=== PATIENT | female | born 1985 | race Caucasian/White ===

== ENCOUNTER → 2018-11-07 | Outpatient (CLI) | payer OTHER ==
--- NOTE | 2018-11-08 07:24 | REP ---
Clinical: Abnormal menstrual cycles . Technique: Transabdominal pelvic ultrasound followed by transvaginal examination for better evaluation of the endometrium and adnexa with color Doppler evaluation of the ovaries. Findings: Bladder is collapsed. Normal anteverted uterus measures 7.0 x 3.7 x 5.5 cm . The endometrial complex measures 8.7 mm thickness. No discrete uterine or endometrial abnormalities are appreciated. Right ovary is normal in appearance and vascularity measuring 2.2 x 2.2 x 1.3 cm; RI 0.56. Left ovary is normal in vascularity without torsion but appears enlarged measuring 4.7 x 3.8 x 4.0 cm with 3.6 cm complex likely physiologic cyst and 4.5 cm adjacent simple appearing exophytic cyst. Small amount of free fluid in the left adnexa. Left ovary RI 0.52. Impression: 1. Relatively normal anteverted uterus and right ovary. 2. Enlarged left ovary with 3.6 cm complex cyst and 4.5 cm simple exophytic cyst. Consider reevaluation in 4-6 weeks to evaluate for resolution. Electronically Signed by Mike Khan MD 11/08/2018 07:15 A
== END ==
LOC: M RAD 16:55
PROVIDERS: ATTEND Obstetrics & Gynecology
DX: N92.1 Excessive and frequent menstruation with irregular cycle (principal)

== ENCOUNTER → 2018-11-20 | Outpatient (CLI) | payer OTHER ==
[2018-11-20 18:59] LABS: FREE T4 0.87 NG/DL (0.76-1.46); THYROID STIMULATING HORMONE 1.53 uIU/ML (0.358-3.740)
[2018-11-21 10:53] LABS: PROLACTIN 5.1 NG/ML
== END ==
LOC: M WUC 08:28
PROVIDERS: ATTEND Obstetrics & Gynecology
DX: N92.1 Excessive and frequent menstruation with irregular cycle (principal)

== ENCOUNTER → 2018-12-08 | Outpatient (CLI) | payer OTHER | LOC: M WUC 10:20 | PROVIDERS: ATTEND Obstetrics & Gynecology | DX: N92.1 Excessive and frequent menstruation with irregular cycle (principal) ==

== ENCOUNTER → 2018-12-20 | Outpatient (CLI) | payer OTHER ==
--- NOTE | 2018-12-20 09:18 | REP ---
PELVIC SONOGRAPHY: HISTORY: Left-sided ovarian cyst. Comparison pelvic sonography November 07, 2018. SONOGRAPHIC FINDINGS: Transabdominal and transvaginal scanning are performed. Uterine dimensions are normal at 7.3 x 3.8 x 4.0 cm. Endometrial echo 0.5 cm thick. The uterus is somewhat retroverted. No focal uterine mass is seen. Visualized bladder hardy are smooth. A normal right ovary seen with dimensions of 4.9 x 2.2 x 4.5 cm. Its Doppler flow is normal, resistive index 0.50. The left ovary measures 3.2 x 2.6 x 2.8 cm. Its Doppler flow is normal, resistive index 0.53. There are two paraovarian cysts in the left adnexa. These measure 1.9 x 1.3 x 1.7 cm and 5.2 x 3.9 x 4.7 cm. IMPRESSION: Paraovarian cyst seen left ovary, largest of which measures 5.2 cm in greatest diameter. This is anechoic without mural nodule or septal thickening. There are a few internal echoes consistent with cellular material. Electronically Signed by Reinier Akbar MD 12/20/2018 09:32 A
== END ==
LOC: M RAD 08:30
PROVIDERS: ATTEND Obstetrics & Gynecology
DX: N83.202 Unspecified ovarian cyst, left side (principal)

== ENCOUNTER → 2019-02-24 | Outpatient (CLI) | payer OTHER ==
--- NOTE | 2019-02-25 08:30 | REP ---
NON-OB PELVIC ULTRASOUND: HISTORY: Irregular menstruation. COMPARISON: 12/20/2018 The uterus measures 4.1 cm in transverse x 3.2 cm in AP 6.4 cm in cephalocaudal dimensions. The endometrium measures 6.5 mm. A 4 mm focus of increased echogenicity is present in the uterus. This may represent a polyp. The right ovary measures 3.9 x 2.4 x 3.5 cm. A 1.6 cm dominant follicle is present. The left ovary measures 3.2 x 2.1 x 2.4 cm. An exophytic versus paraovarian septated cyst measuring 6.1 cm in width is present. There is no torsion. A small amount of free fluid is present in the cul-de-sac. IMPRESSION: 1. There is a possible small 4 mm polyp in the endometrial cavity. 2. There is a 1.6 cm dominant follicle in the right ovary. 3. There is an exophytic versus paraovarian septated cyst along the left ovary measuring 6.1 cm in maximum dimension. Electronically Signed by Michael Maciel MD 02/25/2019 09:04 A
== END ==
LOC: M RAD 16:07
PROVIDERS: ATTEND Obstetrics & Gynecology
DX: N84.0 Polyp of corpus uteri (principal); N83.01 Follicular cyst of right ovary; N83.8 Other noninflammatory disorders of ovary, fallopian tube and broad ligament

== ENCOUNTER 2019-05-03 05:48 | Day surgery (SDC) | payer OTHER ==
[~2019-05-03] VITALS: Ht 165.1 cm; Wt 60.8 kg
[~2019-05-03 05:48] MED LIST: SPIR-10 PO
[2019-05-03] MEDS ORDERED: LR 1,000 ML IV ONE (06:00)
[2019-05-03 06:21] LABS: HEMATOCRIT 37.4 % (36.0-47.0); HEMOGLOBIN 11.5 g/dl (12.0-15.5); MEAN CORPUSCULAR HEMOGLOBIN 26.4 pg (27.0-33.0); MEAN CORPUSCULAR HGB CONC 30.7 g/dl (32.0-36.5); MEAN CORPUSCULAR VOLUME 85.8 fl (80.0-96.0); PLATELET COUNT, AUTOMATED 221 10^3/uL (150-450); RED BLOOD COUNT 4.36 10^6/uL (4.00-5.40); WHITE BLOOD COUNT 6.7 10^3/uL (4.0-10.0)
[2019-05-03 06:57] LABS: URINE PREG TEST NEGATIVE (NEGATIVE)
[2019-05-03] MEDS ORDERED: BUPIVACAINE HCL 0.25% 30 ML VIAL As Ordered ONE (07:06)
[2019-05-03] MEDS ORDERED: ROCURONIUM BROMIDE 50 MG/5 ML VIAL As Ordered ONE (07:15)
[2019-05-03] MEDS ORDERED: LIDOCAINE 2% INJ 100 MG/5 ML SDV (FOR ANES.) As Ordered ONE (07:15)
[2019-05-03] MEDS ORDERED: PROPOFOL 200 MG/20 ML VIAL As Ordered ONE ×2 (07:15→07:17)
[2019-05-03] MEDS ORDERED: dexameTHASONE 4 MG/ML 1ML VIAL (J1100) As Ordered ONE (07:16)
[2019-05-03] MEDS ORDERED: METOCLOPRAMIDE INJ 10MG/2ML VIAL (J2765) As Ordered ONE (07:16)
[2019-05-03] MEDS ORDERED: ONDANSETRON 4MG/2ML VIAL (J2405) As Ordered ONE (07:16)
[2019-05-03] MEDS ORDERED: KETOROLAC 60 MG/2 ML VIAL (J1885) As Ordered ONE (07:17)
[2019-05-03] MEDS ORDERED: MIDAZOLAM INJ 2 MG/2 ML VIAL (J2250) As Ordered ONE (07:18)
[2019-05-03] MEDS ORDERED: fentaNYL 100 MCG/2 ML INJECTION (J3010) As Ordered ONE ×2 (07:18→08:55)
[2019-05-03] MEDS ORDERED: NEOSTIGMINE 10 MG/10 ML VIAL (J2710) As Ordered ONE (08:41)
[2019-05-03] MEDS ORDERED: GLYCOPYRROLATE INJ 0.2 MG/ML 2 ML VIAL As Ordered ONE (08:41)
[2019-05-03] MEDS ORDERED: ACETAMINOPHEN 1000MG 100ML IV BTL (OFIRMEV) (J0131 PER 10MG) As Ordered ONE (08:48)
[2019-05-03] MEDS ORDERED: METOCLOPRAMIDE INJ 10MG/2ML VIAL (J2765) IV PRN (09:30)
[2019-05-03] MEDS ORDERED: PROMETHAZINE INJ 25 MG/ML VIAL (J2550) IV PRN (09:30)
[2019-05-03] MEDS ORDERED: fentaNYL 100 MCG/2 ML INJECTION (J3010) IV PRN (09:30)
[2019-05-03] MEDS ORDERED: HYDROMORPHONE HCL 0.5 MG/ 0.5 ML SYRINGE (J1170 PER 1) IV PRN (09:30)
[2019-05-03] MEDS ORDERED: oxyCODONE 5MG TAB PO PRN (09:30)
[2019-05-03] MEDS ORDERED: LR 1,000 ML IV SCH (09:30)
[2019-05-03] MEDS ORDERED: PERCOCET 5MG/325MG TAB PO PRN (10:00)
[2019-05-03] MEDS ORDERED: KETOROLAC 30 MG/ML VIAL (J1885) IV SCH (10:00)
[2019-05-03 11:15] VITALS: BP 106/67
[2019-05-03] MEDS ORDERED: OXYC1TAB23 PO (12:36)
--- NOTE | 2019-05-03 13:36 | RO ---
DATE OF PROCEDURE: 05/03/2019 PREOPERATIVE DIAGNOSES: 1. Left ovarian cyst. 2. Endometrial polyp. POSTOPERATIVE DIAGNOSES: 1. Left ovarian cyst. 2. Thickened endometrium. PROCEDURES PERFORMED: 1. Laparoscopic diagnostic operative laparoscopy with left ovarian cystectomy. 2. Hysteroscopy with dilation and curettage. SURGEON: Leonor Jimenez MD BUILDING CUSTODIAL SUPERVISOR: Michael Alva MD ANESTHESIA: Generally tracheal anesthesia. ESTIMATED BLOOD LOSS: 10 mL. INTRAVENOUS FLUIDS: 1200 mL lactated Ringer's solution. SPECIMENS: 1. Two left ovarian cysts. 2. Endometrial curettings. PREOPERATIVE ANTIBIOTICS: None. INFECTION CLASSIFICATION: I. OPERATIVE FINDINGS: Patient with an approximately 6 cm left ovarian cyst and an approximately 2 cm left daughter ovarian cyst. Otherwise normal appearing uterus. Right adnexa was visualized and appeared to be normal. HYSTEROSCOPIC FINDINGS: Revealed a thickened endometrium. Bilateral ostia were visualized. DESCRIPTION OF OPERATION: After informed consent was obtained and written consent was reviewed, the patient was brought to the operating room where she was placed under general endotracheal anesthesia. She was then placed in lithotomy position and was prepped and draped in a normal sterile fashion. A time out in the operating room was then performed identifying the patient, the procedure to be performed, as well as, drug allergies. A bivalve speculum then placed revealing the cervix. The anterior lip of the cervix was grasped with a single-tooth tenaculum. Hulka tenaculum then advanced through cervical os for means to manipulate the uterus. The single-tooth tenaculum as well as the speculum was removed. A Vital catheter was placed and set to gravity. Gloves were changed. Attention was turned to the patient's abdomen. The umbilical region was infused with 0.25% Marcaine. Incision was made in this area. An 11 mm trocar and sleeve was advanced through this incision. The laparoscope was replaced revealing intra-abdominal placement. Pneumoperitoneum was then obtained with CO2 gas. Two additional port sites were placed to the left and right side of the patient's abdomen. These areas were infused with 0.25% Marcaine Incision was made in each one of these areas and 5 mm trocars and sleeves were advanced through each one of these incisions under direct visualization. Next, the abdomen was surveyed with the above-noted findings. Using Harmonic Power scalpel device, the left ovarian cyst wall was opened. This was further dissected out. The left ovarian cyst was then peeled away from the ovarian tissue. Intraoperative rupture was performed. The specimen was then brought out through the umbilical port site. The left 2 cm daughter cyst in a similar fashion was dissected off the ovarian wall using Power scalpel device. The left daughter cyst wall was opened. It was further dissected out and was removed and taken out through the umbilical port site. The abdomen was further irrigated and suctioned. Instruments were then removed from the patient's abdomen. The pneumoperitoneum was then released. Trocars were removed at all three port sites. Incisions were closed with #4-0 Monocryl and dressed with Dermabond. I proceeded with the hysteroscopy, dilation and curettage. Attention was then turned towards that procedure. A bivalve speculum was placed. Hulka tenaculum was then removed. A single tooth tenaculum was then replaced. The uterus then sounded to 8 cm. It was sequentially dilated using Hanks dilators. Hysteroscope was then advanced to the cervical os and the endometrial cavity was then surveyed showing a thickened endometrium. No discrete endometrial polyp was identified. Hysteroscope was then removed. Sharp curette was then advanced through cervical os to the level of the fundus and the uterus was curetted in a 360 degree fashion. This tissue was then collected and sent to pathology for further evaluation. The single-tooth tenaculum was removed. The tenaculum sites were noted to be hemostatic. Speculum was then removed. The Vital catheter was removed. The patient was then taken out of lithotomy position and was awakened from anesthesia and taken to recovery in stable condition. Dr. Alva, my surgical oncologist, played an essential role during the laparoscopic left ovarian cystectomy. He assisted with port placement, tissue retraction, identification, removal of the specimen, as well as, wound closure.
== END 2019-05-03 11:21 | disposition home or self-care (01) ==
LOC: M SDC 05:48
PROVIDERS: ATTEND Obstetrics & Gynecology
DX: N84.0 Polyp of corpus uteri (principal); N85.00 Endometrial hyperplasia, unspecified; N83.202 Unspecified ovarian cyst, left side; D64.9 Anemia, unspecified; F41.9 Anxiety disorder, unspecified; F32.9 Major depressive disorder, single episode, unspecified; Z79.899 Other long term (current) drug therapy
CPT/HCPCS: 36415; 58558; 58662; 84703; 85027; 86850; 86900; 86901; 88305; J0131; J1100; J1885; J2250; J2405; J2710; J2765; J3010

== ENCOUNTER → 2019-08-30 | Outpatient (CLI) | payer OTHER ==
[~2019-08-30] MED LIST changes: +OXYC1TAB23 PO
[2019-08-30 18:10] LABS: BASO % 0.3 % (0.0-1.0); EOS % 0.3 % (0.0-3.0); HEMATOCRIT 39.5 % (36.0-47.0); HEMOGLOBIN 12.8 g/dl (12.0-15.5); LYMPH # 1.4 10^3/uL (1.5-5.0); LYMPH % 9.4 % (24.0-44.0); MEAN CORPUSCULAR HEMOGLOBIN 26.6 pg (27.0-33.0); MEAN CORPUSCULAR HGB CONC 32.4 g/dl (32.0-36.5); MEAN CORPUSCULAR VOLUME 82.1 fl (80.0-96.0); MONO # 0.8 10^3/uL (0.0-0.8); MONO % 5.4 % (0.0-5.0); NEUTROPHILS # 12.2 10^3/uL (1.5-8.5); NEUTROPHILS % 83.8 % (36.0-66.0); PLATELET COUNT, AUTOMATED 289 10^3/uL (150-450); RED BLOOD COUNT 4.81 10^6/uL (4.00-5.40); WHITE BLOOD COUNT 14.6 10^3/uL (4.0-10.0)
[2019-08-30 21:39] LABS: CHLAMYDIA DNA AMPLIFICATION NEGATIVE (NEGATIVE); GC DNA AMPLIFICATION NEGATIVE (NEGATIVE)
[2019-09-01 11:35] LABS: HEPATITIS C VIRUS ABY INDEX 0.1 INDEX (<0.8); HIV 1&2 SCREEN CENTAUR NEGATIVE (NEGATIVE); RUBELLA IgG QUALITATIVE IMMUNE (IMMUNE)
== END ==
LOC: M PLALAB 13:58
PROVIDERS: ATTEND Obstetrics & Gynecology
DX: Z34.91 Encounter for supervision of normal pregnancy, unspecified, first trimester (principal); Z3A.00 Weeks of gestation of pregnancy not specified

== ENCOUNTER → 2019-11-10 | Outpatient (CLI) | payer OTHER ==
--- NOTE | 2019-11-10 10:39 | REP ---
OBSTETRIC SONOGRAPHY: HISTORY: Supervision of for anatomy. FINDINGS: Scanning through the gravid uterus demonstrates a viable single intrauterine gestation in a transverse, head to the maternal left lie. motion is observed and heart rate is recorded 152 beats per minute. An anterior grade 0 placenta is seen without evidence of previa or abruption. Amniotic fluid is subjectively normal. Closed cervical length measured transabdominally is 3.4 cm. No extrauterine abnormality is observed. No anomaly is seen. The following anatomic structures are less than optimally visualized due to position: Four-chamber heart with left and right ventricular outflow tract views, and spine. The following anatomic structures are identified and felt to be unremarkable: cranium, choroid plexus, cavum, cerebellum and posterior fossa, face and profile, diaphragm, left-sided stomach, three-vessel cord, kidneys and bladder, upper and lower extremities. Biometry Chart: BPD 4.9 cm = 20 weeks 6 days HC 17.9 cm = 20 weeks 2 days AC 14.8 cm = 20 weeks 1 day FL 3.3 cm = 20 weeks 2 days HL 3.2 cm = 20 weeks 5 days HC/AC ratio normal 1.21. Cephalic index normal 0.77. Estimated weight 340 grams, 0 pounds 11 ounces, 49th percentile for 20 weeks 1 day. IMPRESSION: Viable single intrauterine gestation at 20 weeks 1 day by today's composite sonographic criteria. HOSEA by today's sonography March 28, 2020. anatomic survey is less than complete as above.
== END ==
LOC: M WHC 07:59
PROVIDERS: ATTEND Advanced Practice Midwife
DX: Z34.02 Encounter for supervision of normal first pregnancy, second trimester (principal); Z3A.20 20 weeks gestation of pregnancy

== ENCOUNTER → 2019-12-06 | Outpatient (CLI) | payer OTHER ==
--- NOTE | 2019-12-06 18:05 | REP ---
Clinical: Anatomical evaluation. Comparison: 11/10/2019 . Findings: Examination demonstrates a single live intrauterine in transverse (head to maternal left) presentation. motion is identified by technologist. Placenta is noted anterior and grade zero without evidence for placenta previa or abruption. Amniotic fluid volume is normal. Cervix measures 3.8 cm in length and appears closed. No evidence for nuchal cord. Gestational age by LMP 23 weeks 6 days with HOSEA 03/28/2020 . Gestational age by current measurements 23 weeks 4 days with HOSEA 03/30/2020 . FHR equals 127 beats per minute. Estimated weight 643 grams ( 46th percentile). Anatomical assessment demonstrates normal four-chamber heart/ventricular outflow tracts. Impression: 1. Single live intrauterine in transverse lie demonstrating appropriate interval growth. 2. Continued limited evaluation of the spine. Images of the heart/ventricular outflow tracts are normal. Electronically Signed by Mike Khan MD 12/06/2019 05:57 P
== END ==
LOC: M WHC 09:21
PROVIDERS: ATTEND Nurse Practitioner Women's Health
DX: Z34.02 Encounter for supervision of normal first pregnancy, second trimester (principal); Z3A.23 23 weeks gestation of pregnancy

== ENCOUNTER → 2019-12-20 | Outpatient (REF) | payer OTHER ==
[2019-12-20 13:21] LABS: HEMATOCRIT 33.4 % (36.0-47.0); HEMOGLOBIN 10.4 g/dl (12.0-15.5); MEAN CORPUSCULAR HEMOGLOBIN 26.5 pg (27.0-33.0); MEAN CORPUSCULAR HGB CONC 31.1 g/dl (32.0-36.5); MEAN CORPUSCULAR VOLUME 85.2 fl (80.0-96.0); PLATELET COUNT, AUTOMATED 189 10^3/uL (150-450); RED BLOOD COUNT 3.92 10^6/uL (4.00-5.40)
== END ==
LOC: M PLALAB 08:50
PROVIDERS: ATTEND Nurse Practitioner Women's Health
DX: Z34.02 Encounter for supervision of normal first pregnancy, second trimester (principal)

== ENCOUNTER → 2020-01-02 | Outpatient (CLI) | payer OTHER ==
--- NOTE | 2020-01-03 16:47 | REP ---
Clinical: Anatomical evaluation. Comparison: 12/06/2019 . Findings: Examination demonstrates a single live intrauterine in cephalic presentation. motion is identified by technologist. Placenta is noted anterior and grade I without evidence for placenta previa or abruption. Amniotic fluid volume is normal. Cervix measures 3.5 cm in length and appears closed. No evidence for nuchal cord. Gestational age by LMP 27 weeks 5 days with HOSEA 03/28/2020 . Gestational age by current measurements 27 weeks 6 days with HOSEA 03/27/2020 . FHR equals 147 beats per minute. Estimated weight 1156 grams ( 48th percentile). Anatomical assessment demonstrates normal structures including cranium, facial features, lungs, four-chamber heart/ventricular outflow tracts, diaphragm, stomach, cord insertion/three-vessel cord, kidneys/bladder, spine, and extremities. Impression: Single live intrauterine in cephalic presentation demonstrating appropriate oval growth. Anatomical assessment is complete and normal.
== END ==
LOC: M WHC 08:04
PROVIDERS: ATTEND Nurse Practitioner Women's Health
DX: Z34.02 Encounter for supervision of normal first pregnancy, second trimester (principal); Z3A.25 25 weeks gestation of pregnancy

== ENCOUNTER → 2020-03-01 | Outpatient (REF) | payer OTHER | LOC: M SFHCWAGY 11:02 | PROVIDERS: ATTEND Specialist | DX: Z34.83 Encounter for supervision of other normal pregnancy, third trimester (principal) ==

== ENCOUNTER 2020-03-28 22:34 | Inpatient (IN) | payer OTHER ==
[~2020-03-28] VITALS: Ht 165.1 cm; Wt 84.7 kg
[2020-03-28] MEDS ORDERED: PRENTAB9 PO (22:59)
[2020-03-28] MEDS ORDERED: ZOFR4TAB16 PO (23:00)
[2020-03-28 23:52] LABS: HEMATOCRIT 33.4 % (36.0-47.0); HEMOGLOBIN 10.5 g/dl (12.0-15.5); MEAN CORPUSCULAR HEMOGLOBIN 24.8 pg (27.0-33.0); MEAN CORPUSCULAR HGB CONC 31.4 g/dl (32.0-36.5); PLATELET COUNT, AUTOMATED 199 10^3/uL (150-450); RED BLOOD COUNT 4.23 10^6/uL (4.00-5.40); WHITE BLOOD COUNT 15.6 10^3/uL (4.0-10.0)
[2020-03-29] VITALS (67 sets, daily range): BP systolic 97–174; BP diastolic 50–89
[2020-03-29] MEDS: ONDANSETRON 4MG/2ML VIAL IV PRN ×2 (00:31→09:39)
--- NOTE | 2020-03-29 07:48 | IPNPDOC ---
Text Note Date of Service The patient was seen on 03/29/20. NOTE Progress Eating breakfast. Reports being uncomfortable and with bloody show FH 135, Cat I UC 2-3 minutes SVE 2/80/-2, posterior, moderate, light show No cervical change Will place Cooks catheter and start pitocin after breakfast. Pt plans epidural VS,Fishbone, I+O VS, Fishbone, I+O Laboratory Tests 03/28/20 23:19 Vital Signs Date Time Temp Pulse Resp B/P (MAP) Pulse Ox O2 Delivery O2 Flow Rate FiO2 03/29/20 06:14 89 17 130/74 (92) 03/29/20 06:13 98.2 Maryjane Black Mar 29, 2020 07:48
[2020-03-29] MEDS ORDERED: OXYTOCIN DRIP 30 UNITS in IV 1 EA IV SCH ×2 (08:00→22:46)
[2020-03-29] MEDS ORDERED: PROMETHAZINE INJ 25 MG/ML VIAL (J2550) IV ONE (08:45)
[2020-03-29] MEDS ORDERED: BUTORPHANOL 2 MG/ML INJ (J0595) IV ONE (08:45)
--- NOTE | 2020-03-29 09:06 | IPNPDOC ---
Text Note Date of Service The patient was seen on 03/29/20. NOTE Progress Cooks catheter placed, inflated with 60/40ml NS SROM during placement - thin meconium stained fluid Cat I tracing Will start pitocin VS,Fishbone, I+O VS, Fishbone, I+O Laboratory Tests 03/28/20 23:19 Vital Signs Date Time Temp Pulse Resp B/P (MAP) Pulse Ox O2 Delivery O2 Flow Rate FiO2 03/29/20 07:38 98.5 88 18 116/68 (84) 97 Maryjane Black Mar 29, 2020 09:06
[2020-03-29] MEDS: LR 1,000 ML IV SCH ×3 (09:22→18:16)
[2020-03-29] MEDS ORDERED: FENTANYL 2MCG/ML ROPIVACAINE 0.2% IN 0.9% NACL 100ML IVBAG As Ordered ONE ×2 (10:28→18:23)
[2020-03-29] MEDS ORDERED: EPIDURAL COMMENT XX SCH (11:45)
[2020-03-29] MEDS ORDERED: ONDANSETRON 4MG/2ML VIAL IV PRN (11:45)
[2020-03-29] MEDS ORDERED: LACTATED RINGER'S 1000 ML IV PRN (11:45)
[2020-03-29] MEDS ORDERED: EPIDURAL/PCA KEYS XX PRN (11:45)
[2020-03-29] MEDS ORDERED: REFRIGERATOR IV KEYS XX PRN (11:45)
[2020-03-29] MEDS ORDERED: NALOXONE INJ 0.4MG/1ML VIAL (J2310 PER 1MG) IV PRN (11:45)
[2020-03-29] MEDS ORDERED: diphenhydrAMINE 50MG/ML VIAL (J1200) IV PRN (11:45)
[2020-03-29] MEDS: FENTANYL/ROPIVACAINE/NACL BAG 100 ML EPIDURAL SCH ×2 (12:26→18:26)
--- NOTE | 2020-03-29 14:10 | IPNPDOC ---
Text Note Date of Service The patient was seen on 03/29/20. NOTE Progress Comfortable with epidural Cat I tracing UC 2-3 minutes, moderate Thin meconium fluid draining PV SVE bulb in vagina. -/-1 Continue induction. Anticipate NSVB VS,Fishbone, I+O VS, Fishbone, I+O Laboratory Tests 03/28/20 23:19 Vital Signs Date Time Temp Pulse Resp B/P (MAP) Pulse Ox O2 Delivery O2 Flow Rate FiO2 03/29/20 07:38 98.5 88 18 116/68 (84) 97 Maryjane Black CNM Mar 29, 2020 14:10
--- NOTE | 2020-03-29 15:18 | HPE ---
DATE OF ADMISSION: 03/28/2020 A 34-year-old (G) 1, para (P) 0 female at 40 and 0/7 weeks gestation by last menstrual period (LMP) consistent with early ultrasound, estimated date of confinement (EDC) 03/28/2020 who presents with contractions every 3-4 minutes for the last several hours. Contractions have increased in intensity. She has had a small amount of bloody show. She denies leaking fluid. PAST MEDICAL HISTORY: Anxiety and depression. PAST SURGICAL HISTORY: 1. Knee surgery. 2. Hysteroscopy. 3. Ankle surgery. 4. Ovarian cystectomy. ALLERGIES: No known drug allergies. SOCIAL HISTORY: The patient lives in [place]. Denies cigarettes, alcohol, or drug use. The patient is . FAMILY HISTORY: Noncontributory. PHYSICAL EXAMINATION: Blood pressure 132/88, pulse 84. Appears mildly uncomfortable. HEAD AND NECK: Normal. LUNGS: Clear. HEART: Regular. ABDOMEN: Nontender, gravid. heart tones are category 1. Contractions every 3-5 minutes. STERILE VAGINAL EXAMINATION: 2 cm, 80%, -2, posterior, soft, vertex. EXTREMITIES: Nontender. LABORATORY DATA: GBS negative. Blood type O+. ASSESSMENT: A 34-year-old (G) 1 at 40 and 0/7 weeks gestation who presents in early labor. PLAN: The patient is admitted on 03/28/2020.
[2020-03-29] MEDS ORDERED: fentaNYL 100 MCG/2 ML INJECTION (J3010) As Ordered ONE (16:58)
--- NOTE | 2020-03-29 17:19 | IPNPDOC ---
Text Note Date of Service The patient was seen on 03/29/20. NOTE Progress More comfortable with epidural bolus. FH Minimal/moderate variability, Cat I with episodes Cat II UC Q 2-3 minutes Pitocin @ 6mu SVE /-1, light show and thin meconium Continue to support and observe VS,Fishbone, I+O VS, Fishbone, I+O Laboratory Tests 03/28/20 23:19 Vital Signs Date Time Temp Pulse Resp B/P (MAP) Pulse Ox O2 Delivery O2 Flow Rate FiO2 03/29/20 13:07 76 18 97/50 (66) 03/29/20 11:36 98.2 03/29/20 07:38 97 Maryjane Black CNM Mar 29, 2020 17:19
[2020-03-29] MEDS: ePHEDrine SULFATE 25 MG/5 ML(5MG/ML) SYRINGE IV PRN ×3 (18:44→18:57)
[2020-03-29] MEDS ORDERED: ACETAMINOPHEN 500 MG TAB PO ONE (19:00)
--- NOTE | 2020-03-29 21:24 | IPNPDOC ---
Text Note Date of Service The patient was seen on 03/29/20. NOTE Progress Fully dilated 1915. Commenced pushing 1949. FH 160's-170's between Now becoming 170's-180's between . Presenting part +2, +[address] Jimenez requested to attend. VS,Terrybone, I+O VS, Terrybone, I+O Laboratory Tests 03/28/20 23:19 Vital Signs Date Time Temp Pulse Resp B/P (MAP) Pulse Ox O2 Delivery O2 Flow Rate FiO2 03/29/20 18:59 92 125/65 (85) 03/29/20 18:59 99.5 03/29/20 18:43 18 03/29/20 07:38 97 Maryjane Black CNM Mar 29, 2020 21:24
[2020-03-29 22:25] LABS: CORD GAS ABE V -4.7; CORD GAS O2 SAT V 53.6 %; CORD GAS PCO2 V 46.2 mmHg; CORD GAS PH V 7.295 UNITS; CORD GAS PO2 V 24.3 mmHg; CORD GAS SBC V 19.5 MEQ/L; CORD GAS TCO2 V 23.4 MEQ/L
[2020-03-29 22:28] LABS: CORD GAS ABE A -9.3; CORD GAS HCO3 A 18.5 MEQ/L; CORD GAS O2 SAT A 68.3 %; CORD GAS PH A 7.214 UNITS; CORD GAS SBC A 16.6 MEQ/L
--- NOTE | 2020-03-29 22:48 | DNPDOC ---
[facility] Delivery Note Delivery Note DATE OF DELIVERY: 03/29/2020 TIME OF : 2203 GENDER:, Female. APGARS:, 7 and 9. WEIGHT:, 3970 grams or 8 pounds 9 ounces. LACERATIONS:. Second-degree midline laceration ANESTHESIA: Epidural. ESTIMATED BLOOD LOSS: 300ml COUNTS: 5 laparotomy sponges accounted for prior to after delivery. 3 sharps removed delivery field. MODE OF DELIVERY: Low vacuum-assisted vaginal delivery INDICATION: Persistent category 2 rate tracing COMPLICATION: None DELIVERY NOTE: Was called to room to assess patient for persistent category 2 heart tracing with tachycardia and repetitive variable decelerations. She was pushing for approximately one and half hours when I pr esented to the labor room. Patient was assessed and was noted to be at +2 station. Vital catheter was removed. The position was confirmed to be occiput anterior (OA). Patient was thoroughly counseled in regards to operative vacuum delivery. Vacuum was placed and with 2 maternal pushing efforts, head was delivered without any pop offs of the vacuum. Vacuum was then removed. Nuchal cord was manually reduced followed by delivery of the shoulders and corpus. was handed to mom with a good cry. Cord was clamped times two and was cut by the father of baby under my direction. Placenta was then drained and delivered grossly intact. A premixed bag of 500 mL of normal saline with 30 units of Pitocin was then bolused along with uterine massage until the uterus was firm. On inspection,. There was a 2nd-degree midline laceration which was repaired with 3-0 Vicryl. On reinspection, cervix, vagina, perineum was grossly intact and hemostatic. Mom and baby in recovery on stable condition. The couples decided to remain in daughter , ALEJANDRO Latham MD. Mar 29, 2020 22:48
[2020-03-29] MEDS: IBUPROFEN 800 MG TAB PO PRN (22:56)
[2020-03-29] MEDS ORDERED: AMPICILLIN SOD/SULBACTAM SOD 3 GM in D5W MINI-BAG PLUS 100 ML IV ONE (23:00)
[2020-03-29] MEDS ORDERED: ANUSOL HC CREAM 30GM TOP PRN (23:00)
[2020-03-29] MEDS ORDERED: METHYLERGONOVINE MALEATE 0.2 MG TAB PO PRN (23:00)
[2020-03-29] MEDS ORDERED: ACETAMINOPHEN TAB 650MG DOSE (2X325MG) PO PRN (23:00)
[2020-03-29] MEDS ORDERED: IBUPROFEN 600MG TAB PO PRN (23:00)
[2020-03-29] MEDS ORDERED: DIBUCAINE 1% OINTMENT 30GM TOP PRN (23:00)
[2020-03-29] MEDS ORDERED: MOM 30ML SUSPENSION UDC PO PRN (23:00)
[2020-03-29] MEDS ORDERED: MEASLES,MUMPS,RUBELLA VACCINE INJ (MMR-II) (90707) SC SCH (23:00)
[2020-03-29] MEDS ORDERED: RHOGAM 300 MCG (1500 IU) INJ (J2790) IM SCH (23:00)
[2020-03-30 00:57] VITALS: BP 92/55
[2020-03-30] MEDS: ACETAMINOPHEN 500 MG TAB PO PRN ×2 (01:25→19:56)
[2020-03-30 06:00] VITALS: BP 115/62
[2020-03-30] MEDS: IBUPROFEN 800 MG TAB PO PRN ×2 (06:42→15:15)
[2020-03-30] MEDS: DOCUSATE SODIUM 100 MG CAP PO PRN ×2 (06:46→19:55)
[2020-03-30] MEDS: PRENATAL VITAMINS CHEWABLE TABLET PO SCH (08:07)
--- NOTE | 2020-03-30 08:16 | IPNPDOC ---
Text Note Date of Service The patient was seen on 03/30/20. NOTE PP #1 Feels well. Reports rectal pressure and discomfort. Voiding. VSS, afebrile,normotensive Fundus firm, NT, down 1 FB Lochia rubra light without odor Perineum well approximated. Mild edema left > right. Tissues are soft. PP #1 post vacuum assisted vaginal delivery Routine care. Continue ice to perineum. Consider discharge in am VS,Fishbone, I+O VS, Fishbone, I+O Vital Signs Date Time Temp Pulse Resp B/P (MAP) Pulse Ox O2 Delivery O2 Flow Rate FiO2 03/30/20 06:00 98.0 95 18 115/62 (79) 03/29/20 07:38 97 I&O- Last 24 Hours up to 6 AM 03/30/20 06:00 Intake Total 6846 ml Output Total 1025 ml Balance 5821 ml Maryjane Black CNM Mar 30, 2020 08:16
[2020-03-30 18:00] VITALS: BP 118/68
[2020-03-31] MEDS: IBUPROFEN 800 MG TAB PO PRN ×2 (01:35→14:21)
[2020-03-31 05:51] VITALS: BP 99/57
[2020-03-31] MEDS: ACETAMINOPHEN 500 MG TAB PO PRN ×2 (05:52→14:21)
[2020-03-31] MEDS: PRENATAL VITAMINS CHEWABLE TABLET PO SCH (07:22)
[2020-03-31] MEDS: DOCUSATE SODIUM 100 MG CAP PO PRN (14:54)
== END 2020-03-31 14:55 | disposition home or self-care (01) | DRG 807 ==
LOC: M LDO 22:34 → M LDI 23:14 → M OBS 03-30 00:57
PROVIDERS: ADMIT Specialist; ATTEND Specialist
PROC: 10D07Z6 Extraction of Products of Conception, Vacuum, Via Natural or Artificial Opening (ICD-10-PCS; principal; 2020-03-29)
PROC: 0KQM0ZZ Repair Perineum Muscle, Open Approach (ICD-10-PCS; 2020-03-29)
DX: O48.0 Post-term pregnancy (principal); Z37.0 Single live birth; Z3A.40 40 weeks gestation of pregnancy; O70.1 Second degree perineal laceration during delivery; O76 Abnormality in fetal heart rate and rhythm complicating labor and delivery; O69.81X0 Labor and delivery complicated by cord around neck, without compression, not applicable or unspecified

== ENCOUNTER → 2020-04-29 | Outpatient (REF) | payer OTHER ==
[~2020-04-29] MED LIST changes: +PRENTAB9 PO; +ZOFR4TAB16 PO
[2020-05-30 13:31] LABS: AMORPHOUS SEDIMENT MODERATE (NEGATIVE); APPEARANCE, URINE TURBID (CLEAR); BACTERIA, URINE AUTO NEGATIVE (NEGATIVE); BILIRUBIN, URINE AUTO NEGATIVE (NEGATIVE); BLOOD, URINE BLOOD 2+ (NEGATIVE); COLOR, URINE AMBER (YELLOW); GLUCOSE, URINE (UA) AUTO NEGATIVE (NEGATIVE); KETONE, URINE AUTO NEGATIVE (NEGATIVE); LEUKOCYTE ESTERASE, URINE AUTO 1+ (NEGATIVE); MUCUS, URINE MODERATE (NEGATIVE); NITRITE, URINE AUTO NEGATIVE (NEGATIVE); PROTEIN, URINE AUTO NEGATIVE (NEGATIVE); RBC, URINE AUTO 1 /HPF (0-3); SPECIFIC GRAVITY URINE AUTO 1.023 (1.002-1.035); SQUAMOUS EPITHELIAL CELL UR AU 1 /HPF (0-6); UROBILINOGEN, URINE AUTO 0.2 mg/dL (0.0-2.0); WBC, URINE AUTO 4 /HPF (0-3)
== END ==
LOC: M SFHCPLAZ 13:02
PROVIDERS: ATTEND Family Medicine
DX: R30.0 Dysuria (principal)

== ENCOUNTER → 2020-05-23 | Outpatient (REF) | payer OTHER | LOC: M LAB REF 16:47 | PROVIDERS: ATTEND Advanced Practice Midwife | DX: R10.2 Pelvic and perineal pain (principal) ==

== ENCOUNTER → 2020-06-11 | Outpatient (CLI) | payer OTHER ==
--- NOTE | 2020-06-20 10:01 | REP ---
PELVIC PAIN WITH HISTORY OF OVARIAN CYST CLINICAL: Transabdominal pelvic ultrasound followed transvaginal examination for better evaluation of the endometrium and adnexa with color Doppler evaluation of the ovaries. FINDINGS: Heterogeneous retroverted uterus measures 7.0 x 3.6 x 5.2 cm. The endometrial complex measures 3-mm thickness. Few small nabothian cysts are suggested. Ovaries are normal in vascularity without torsion. Right ovary measures 2.7 x 2.1 x 2.0 cm (RI 0.41) and appears normal. Left ovary measures 3.2 x 2.1 x 2.2 cm (RI 0.54) and includes multiple follicles up to roughly 10 mm along with a 2.3 cm paraovarian cyst, which is decreased in size as compared to 02/24/2019. Trace pelvic free fluid is nonspecific and likely physiologic. Bladder is normal and measures 5.0 x 3.8 x 1.7 cm. IMPRESSION: * Normal uterus and ovaries. * A 2.3 cm left paraovarian cyst again noted, but decreased in size compared to 02/24/2019. MTDD
== END ==
LOC: M RAD 08:35
PROVIDERS: ATTEND Advanced Practice Midwife
DX: R10.2 Pelvic and perineal pain (principal); Z87.42 Personal history of other diseases of the female genital tract